=== PATIENT | male | born 1990 | race Caucasian/White ===

== ENCOUNTER 2017-11-12 07:55 | Day surgery (SDC) | payer OTHER ==
[~2017-11-12] VITALS: Ht 182.9 cm; Wt 70.3 kg
[~2017-11-12 07:55] MED LIST: REMERON30 MG PO
[2017-11-12] MEDS ORDERED: MOTRIN200 MG PO (08:07)
[2017-11-12 08:20] LABS: BARBITURATES NEGATIVE (NEGATIVE); COCAINE NEGATIVE (NEGATIVE); METHADONE NEGATIVE (NEGATIVE); OXCYCODONE NEGATIVE (NEGATIVE); TETRAHYDROCANNABIONOL NEGATIVE (NEGATIVE); TRICYLIC ANTIDEPRESSANTS NEGATIVE (NEGATIVE)
[2017-11-12] MEDS ORDERED: TORADOL PO (10:23)
[2017-11-12 10:42] VITALS: BP 128/65
== END 2017-11-12 11:10 | DRG 352 ==
LOC: ORM 07:55
PROVIDERS: ATTEND Surgery
PROC: 0YU60JZ Supplement Left Inguinal Region with Synthetic Substitute, Open Approach (ICD-10-PCS; principal; 2017-11-12)
PROC: 0VQ Male Reproductive System, Repair (ICD-10-PCS; 2017-11-12)
DX: K40.90 Unilateral inguinal hernia, without obstruction or gangrene, not specified as recurrent (principal); N43.3 Hydrocele, unspecified; Z87.891 Personal history of nicotine dependence